=== PATIENT | male | born 1950 | race Two or more races ===

== ENCOUNTER → 2017-08-21 | Outpatient (CLI) | payer OTHER, MEDICAID ==
[~2017-08-21] MED LIST: AMOX500C2 OR; TRIA25CA OR
[2017-08-21 07:19] LABS: Basophils # (auto) 0 uL; Basophils % (auto) 0.4 % (0.0-2.0); Eosinophils # (auto) 0.1 uL; Eosinophils % (auto) 0.7 % (0.0-7.0); Hematocrit 49.3 % (41.0-53.0); Hemoglobin 16.5 g/dL (13.5-17.5); Lymphocytes # (auto) 2.6 uL; Lymphocytes % (auto) 29.3 % (10.0-50.0); Mean Corpuscular Hemoglobin 30.3 pg (28.0-32.0); Mean Corpuscular Hgb Conc. 33.4 g/dL (32.0-36.0); Mean Corpuscular Volume 90.5 fL (80.0-100.0); Mean Platelet Volume 9.2 fL (6.9-10.8); Monocytes # (auto) 0.7 uL; Neutrophils # (auto) 5.4 uL; Neutrophils % (auto) 61.6 % (37.0-80.0); Nucleated Red Blood Cells % 0.1 %; Platelet Count (auto) 200 10^3/uL (140-450); Red Cell Distribution Width 14.2 % (11.8-14.3); White Blood Cell 8.8 10^3/uL (4.4-10.8)
[2017-08-21 07:27] LABS: Urine Bilirubin Negative (Negative); Urine Blood Negative /uL (Negative); Urine Color Yellow (Yellow); Urine Glucose Normal (Normal); Urine Ketone Negative (Negative); Urine Mucus FEW (None Seen); Urine Nitrite Negative (Negative); Urine RBC 7 /hpf (0 - 3); Urine Squamous Epithelial Cell FEW /hpf (<5); Urine Urobilinogen Normal (Negative)
[2017-08-21 07:39] LABS: Albumin 3.5 g/dL (3.4-5.0); BUN/Creatinine Ratio 19.7; Bilirubin, Total 0.4 mg/dL (0.2-1.0); Calcium 8.5 mg/dL (8.5-10.1); Total Protein 7.4 g/dL (6.4-8.2); Uric Acid 3.4 mg/dL (3.5-7.2)
== END | disposition home or self-care (01) ==
LOC: LAB 06:42
PROVIDERS: ATTEND Internal Medicine
DX: N40.0 Benign prostatic hyperplasia without lower urinary tract symptoms (principal); R79.89 Other specified abnormal findings of blood chemistry; Z87.442 Personal history of urinary calculi
CPT/HCPCS: 36415; 80053; 80061; 81001; 82270; 83970; 84439; 84443; 84550; 85025; 85652

== ENCOUNTER → 2018-07-11 | Outpatient (CLI) | payer OTHER, MEDICAID ==
[2018-07-11 08:05] LABS: Basophils # (auto) 0 uL; Basophils % (auto) 0.5 % (0.0-2.0); Eosinophils # (auto) 0.1 uL; Eosinophils % (auto) 1.2 % (0.0-7.0); Hematocrit 46.4 % (41.0-53.0); Hemoglobin 15.5 g/dL (13.5-17.5); Lymphocytes # (auto) 2.6 uL; Lymphocytes % (auto) 31.9 % (10.0-50.0); Mean Corpuscular Hemoglobin 30.6 pg (28.0-32.0); Mean Corpuscular Hgb Conc. 33.5 g/dL (32.0-36.0); Mean Corpuscular Volume 91.5 fL (80.0-100.0); Monocytes # (auto) 0.7 uL; Monocytes % (auto) 8.8 % (0.0-12.0); Neutrophils # (auto) 4.7 uL; Neutrophils % (auto) 57.6 % (37.0-80.0); Nucleated Red Blood Cells % 0.1 %; Platelet Count (auto) 211 10^3/uL (140-450); Red Blood Cells 5.07 10^6/uL (4.5-5.90); Red Cell Distribution Width 14.1 % (11.8-14.3); White Blood Cell 8.2 10^3/uL (4.4-10.8)
[2018-07-11 08:34] LABS: Urine Bacteria MANY /hpf (None Seen); Urine Blood 2+ /uL (Negative); Urine Mucus FEW (None Seen); Urine WBC 737 /hpf (0 - 3); Urine WBC Clumps PRESENT /hpf (None Seen)
[2018-07-11 08:50] LABS: Albumin 3.4 g/dL (3.4-5.0); BUN/Creatinine Ratio 28.2; Bilirubin, Total 0.4 mg/dL (0.2-1.0); Calcium 8.4 mg/dL (8.5-10.1); Potassium 3.9 mmol/L (3.5-5.1)
[2018-07-11 09:57] LABS: Free T4 (Free Thyroxine) 1.04 ng/dL (0.89-1.76); Prostate Specific Antigen 2.83 ng/mL (0.0-4.0)
== END | disposition home or self-care (01) ==
LOC: LAB 07:32
PROVIDERS: ATTEND Internal Medicine
DX: Z12.11 Encounter for screening for malignant neoplasm of colon (principal); I10 Essential (primary) hypertension; N40.0 Benign prostatic hyperplasia without lower urinary tract symptoms
CPT/HCPCS: 36415; 80053; 80061; 81001; 82043; 82270; 84153; 84439; 84443; 85025; 85652

== ENCOUNTER → 2018-08-26 | Outpatient (CLI) | payer OTHER | END | disposition home or self-care (01) | LOC: LAB 10:05 | PROVIDERS: ATTEND Internal Medicine | DX: N40.1 Benign prostatic hyperplasia with lower urinary tract symptoms (principal); R31.21 Asymptomatic microscopic hematuria | CPT/HCPCS: 87086 ==

== ENCOUNTER → 2019-01-19 | Day surgery (SDC) | payer OTHER, MEDICAID ==
[2019-01-16 14:07] LABS: Basophils # (auto) 0 uL; Basophils % (auto) 0.2 % (0.0-2.0); Eosinophils # (auto) 0 uL; Eosinophils % (auto) 0.3 % (0.0-7.0); Hematocrit 48.6 % (41.0-53.0); Lymphocytes # (auto) 2.1 uL; Lymphocytes % (auto) 22.4 % (10.0-50.0); Mean Corpuscular Hemoglobin 30.5 pg (28.0-32.0); Mean Corpuscular Volume 92.2 fL (80.0-100.0); Monocytes # (auto) 0.8 uL; Monocytes % (auto) 8.8 % (0.0-12.0); Neutrophils # (auto) 6.3 uL; Neutrophils % (auto) 68.3 % (37.0-80.0); Platelet Count (auto) 202 10^3/uL (140-450); Red Blood Cells 5.27 10^6/uL (4.5-5.90); Red Cell Distribution Width 14.1 % (11.8-14.3); Urine Bacteria NONE SEEN /hpf (None Seen); Urine Blood TRACE /uL (Negative); Urine Mucus FEW (None Seen); Urine Specific Gravity 1.024 (1.001-1.035); Urine WBC 7 /hpf (0 - 3); White Blood Cell 9.3 10^3/uL (4.4-10.8)
[2019-01-16 14:19] LABS: INR 0.99 (0.9-1.15); Partial Thromboplastin Time 24.8 sec (23.78-33.04); Prothrombin Time 10.6 sec (9.27-12.13)
[2019-01-16 16:02] LABS: Albumin 3.5 g/dL (3.4-5.0); BUN/Creatinine Ratio 26.6; Bilirubin, Total 0.4 mg/dL (0.2-1.0); Calcium 8.4 mg/dL (8.5-10.1); Total Protein 7.2 g/dL (6.4-8.2)
[~2019-01-19] VITALS: Ht 167.6 cm; Wt 90.7 kg
[~2019-01-19] MED LIST changes: -AMOX500C2 OR; +CIPROFLOXACIN 400MG/200ML 200 ML IV ONE; +HYDROmorphone HCL 2 MG/ML VL IV PRN; +LIDOCAINE 2% JELLY 11ml (GLYDO) ONE; +MEPERIDINE HCL (50 MG/ML) 1 ML VIAL ONE; +METOCLOPRAMIDE HCL 5MG/ml INJ 2ml VIAL IV ONE; +METOCLOPRAMIDE HCL 5MG/ml INJ 2ml VIAL ONE; +MIDAZOLAM HCL 1MG/1ML-2 ML VIAL ONE; +ONDANSETRON HCL 4 MG/2 ML VIAL ONE; +PROMETHAZINE HCL 25 MG/ML 1ML IV ONE; +PROMETHAZINE HCL 25 MG/ML 1ML ONE; +PROPOFOL 10 MG/ML 20 ML IV ONE; +ROCURONIUM 10MG/ML 10ML VIAL IV ONE; +SODIUM CHLORIDE LOCK 10 ML ONE; -TRIA25CA OR; +ePHEDrine SULFATE 50 MG/ML AMP ONE; +fentaNYL CITRATE 100 MCG/2 ML VL ONE
[2019-01-19 12:17] VITALS: BP 151/77
== END | disposition home or self-care (01) ==
LOC: SUR 05:50
PROVIDERS: ATTEND Urology
DX: N40.0 Benign prostatic hyperplasia without lower urinary tract symptoms (principal); N32.89 Other specified disorders of bladder; N32.9 Bladder disorder, unspecified; E66.9 Obesity, unspecified; Z68.32 Body mass index [BMI] 32.0-32.9, adult; Z98.890 Other specified postprocedural states; Z79.899 Other long term (current) drug therapy
CPT/HCPCS: 36415; 52240; 52601; 80053; 81001; 85025; 85610; 85730; 88305; J0744; J2175; J2250; J2405; J2550; J2704; J2765; J3010

== ENCOUNTER → 2019-07-28 | Outpatient (CLI) | payer OTHER, MEDICAID ==
[2019-07-28 09:07] LABS: Uric Acid 3.6 mg/dL (3.5-7.2)
== END | disposition home or self-care (01) ==
LOC: LAB 08:15
PROVIDERS: ATTEND Internal Medicine
DX: Z12.11 Encounter for screening for malignant neoplasm of colon (principal); I10 Essential (primary) hypertension
CPT/HCPCS: 36415; 80061; 82270; 83970; 84439; 84443; 84550

== ENCOUNTER → 2020-08-09 | Outpatient (CLI) | payer OTHER, MEDICAID | END | disposition home or self-care (01) | LOC: LAB 09:33 | PROVIDERS: ATTEND Internal Medicine | DX: N40.0 Benign prostatic hyperplasia without lower urinary tract symptoms (principal); R53.83 Other fatigue; E87.6 Hypokalemia | CPT/HCPCS: 82270 ==

== ENCOUNTER → 2020-08-09 | Outpatient (CLI) | payer OTHER, MEDICAID ==
[2020-08-09 08:44] LABS: Basophils # (auto) 0 10 ^3/uL (0-0.2); Basophils % (auto) 0.4 % (0.0-2.0); Eosinophils # (auto) 0.1 10 ^3/uL (0-0.8); Eosinophils % (auto) 0.8 % (0.0-7.0); Hematocrit 47.3 % (41.0-53.0); Hemoglobin 15.6 g/dL (13.5-17.5); Mean Corpuscular Hemoglobin 30.4 pg (28.0-32.0); Mean Corpuscular Hgb Conc. 32.9 g/dL (32.0-36.0); Mean Corpuscular Volume 92.2 fL (80.0-100.0); Monocytes # (auto) 0.8 10 ^3/uL (0-1.3); Monocytes % (auto) 8.3 % (0.0-12.0); Neutrophils # (auto) 5.4 10 ^3/uL (1.6-8.6); Neutrophils % (auto) 58.5 % (37.0-80.0); Nucleated Red Blood Cells % 0.1 %; Platelet Count (auto) 193 10^3/uL (140-450); Red Blood Cells 5.13 10^6/uL (4.5-5.90); White Blood Cell 9.2 10^3/uL (4.4-10.8)
[2020-08-09 08:49] LABS: Urine Bacteria NONE SEEN /hpf (None Seen); Urine Blood Negative /uL (Negative); Urine Mucus FEW (None Seen); Urine Specific Gravity 1.018 (1.001-1.035); Urine WBC 1 /hpf (0 - 3)
[2020-08-09 09:06] LABS: Albumin 3.5 g/dL (3.4-5.0); Calcium 8.4 mg/dL (8.5-10.1); Potassium 3.7 mmol/L (3.5-5.1)
[2020-08-09 09:12] LABS: BUN/Creatinine Ratio 25.8; Bilirubin, Total 0.6 mg/dL (0.2-1.0); Total Protein 6.8 g/dL (6.4-8.2)
[2020-08-09 10:17] LABS: Free T4 (Free Thyroxine) 1.04 ng/dL (0.89-1.76); Prostate Specific Antigen 1.18 ng/mL (0.0-4.0)
== END | disposition home or self-care (01) ==
LOC: LAB 08:04
PROVIDERS: ATTEND Internal Medicine
DX: Z12.11 Encounter for screening for malignant neoplasm of colon (principal); N40.1 Benign prostatic hyperplasia with lower urinary tract symptoms; E83.51 Hypocalcemia; R53.83 Other fatigue
CPT/HCPCS: 36415; 80053; 80061; 81001; 83970; 84153; 84439; 84443; 85025; 85652

== ENCOUNTER → 2021-08-28 | Outpatient (CLI) | payer OTHER ==
[2021-08-28 08:29] LABS: Basophils # (auto) 0.1 10 ^3/uL (0-0.2); Basophils % (auto) 0.9 % (0.0-2.0); Eosinophils # (auto) 0.1 10 ^3/uL (0-0.8); Hematocrit 48.4 % (41.0-53.0); Hemoglobin 15.7 g/dL (13.5-17.5); Lymphocytes # (auto) 2.7 10 ^3/uL (0.4-5.4); Lymphocytes % (auto) 33.3 % (10.0-50.0); Mean Corpuscular Hemoglobin 30.1 pg (28.0-32.0); Mean Corpuscular Hgb Conc. 32.4 g/dL (32.0-36.0); Mean Corpuscular Volume 93.1 fL (80.0-100.0); Monocytes # (auto) 0.8 10 ^3/uL (0-1.3); Monocytes % (auto) 9.8 % (0.0-12.0); Neutrophils # (auto) 4.5 10 ^3/uL (1.6-8.6); Nucleated Red Blood Cells % 0.1 %; Red Cell Distribution Width 14.2 % (11.8-14.3); Urine Bacteria NONE SEEN /hpf (None Seen); Urine Blood Negative /uL (Negative); Urine Mucus FEW (None Seen); Urine Specific Gravity 1.012 (1.001-1.035); Urine WBC 19 /hpf (0 - 3); White Blood Cell 8.2 10^3/uL (4.4-10.8)
[2021-08-28 09:01] LABS: Potassium 4.1 mmol/L (3.5-5.1)
[2021-08-28 09:11] LABS: Albumin 3.4 g/dL (3.4-5.0); BUN/Creatinine Ratio 27.4; Bilirubin, Total 0.5 mg/dL (0.2-1.0); Calcium 8.9 mg/dL (8.5-10.1); Total Protein 6.8 g/dL (6.4-8.2)
== END | disposition home or self-care (01) ==
LOC: LAB 07:46
PROVIDERS: ATTEND Internal Medicine
DX: R03.0 Elevated blood-pressure reading, without diagnosis of hypertension (principal)
CPT/HCPCS: 36415; 80053; 80061; 81001; 82270; 84439; 84443; 85025; 85652

== ENCOUNTER 2021-11-10 01:16 | Inpatient (IN) | payer OTHER ==
[~2021-11-10] VITALS: Ht 167.6 cm; Wt 89.9 kg
[2021-11-10 04:46] LABS: Basophils # (auto) 0 10 ^3/uL (0-0.2); Basophils % (auto) 0.1 % (0.0-2.0); Eosinophils # (auto) 0 10 ^3/uL (0-0.8); Hematocrit 48.3 % (41.0-53.0); Hemoglobin 16.1 g/dL (13.5-17.5); Lymphocytes # (auto) 0.7 10 ^3/uL (0.4-5.4); Lymphocytes % (auto) 5.1 % (10.0-50.0); Mean Corpuscular Hemoglobin 30.2 pg (28.0-32.0); Mean Corpuscular Hgb Conc. 33.3 g/dL (32.0-36.0); Monocytes # (auto) 0.8 10 ^3/uL (0-1.3); Monocytes % (auto) 5.9 % (0.0-12.0); Neutrophils % (auto) 88.9 % (37.0-80.0); Nucleated Red Blood Cells % 0.1 %; Red Blood Cells 5.31 10^6/uL (4.5-5.90); Red Cell Distribution Width 13.6 % (11.8-14.3); White Blood Cell 13.5 10^3/uL (4.4-10.8)
[2021-11-10 04:50] LABS: Albumin 3.3 g/dL (3.4-5.0); BUN/Creatinine Ratio 28.4; Calcium 8.2 mg/dL (8.5-10.1); Potassium 4.1 mmol/L (3.5-5.1)
[2021-11-10 04:53] LABS: Bilirubin, Total 0.6 mg/dL (0.2-1.0); Total Protein 6.9 g/dL (6.4-8.2)
[2021-11-10 08:46] LABS: Cholesterol 180 mg/dL (< 200)
[2021-11-10 08:48] LABS: HDL Cholesterol 47 mg/dL (40-59); LDL Cholesterol 118 mg/dL (< 100); Triglycerides 85 mg/dL (< 150)
[2021-11-10 09:28] LABS: Urine Bacteria NONE SEEN /hpf (None Seen); Urine Blood 3+ /uL (Negative); Urine Mucus FEW (None Seen); Urine Specific Gravity 1.021 (1.001-1.035); Urine WBC 233 /hpf (0 - 3)
[2021-11-10] MEDS ORDERED: ONDANSETRON HCL 4 MG/2 ML VIAL IV PRN (09:30)
[2021-11-10] MEDS ORDERED: MORPHINE SULFATE INJECTION 2 MG/ML SYRG IV PRN ×2 (09:30)
[2021-11-10] MEDS ORDERED: HYDROcodone-ACET 5/325MG TAB PO PRN (09:30)
[2021-11-10] MEDS ORDERED: ATORVASTATIN 20 MG TAB PO ONE (09:30)
[2021-11-10] MEDS ORDERED: ASPirin-EC 325mg tab PO ONE (09:30)
[2021-11-10] MEDS ORDERED: ACETAMINOPHEN 325 MG TAB PO PRN (09:30)
[2021-11-10] MEDS ORDERED: DOCUSATE SOD 100 MG CAP PO PRN (09:30)
[2021-11-10] MEDS ORDERED: NITROGLYCERIN 0.4 MG SL TAB SL PRN (09:30)
[2021-11-10] MEDS ORDERED: amLODIPine BESYLATE 5 MG TAB PO ONE (09:30)
[2021-11-10 09:38] LABS: INR 1.07 (0.9-1.15); Partial Thromboplastin Time 22.5 sec (23.6-33.0)
[2021-11-10 10:27] LABS: Free T4 (Free Thyroxine) 1.08 ng/dL (0.89-1.76)
[2021-11-10 10:28] LABS: Folate (Folic Acid) 14.18 ng/mL (5.38-24)
[2021-11-10 13:00] VITALS: BP 125/63
[2021-11-10] MEDS ORDERED: CLOPIDOGREL BISULFATE 75 MG TAB PO ONE (15:15)
[2021-11-10] MEDS ORDERED: CYANOCOBALAMIN (B-12) 1000 MCG/1 ML VIAL SUBCUT ONE (15:15)
[2021-11-10] MEDS: SODIUM CHLOR 0.9% PF (SALINE LOCK) 10ML VIAL/SYR IV SCH (15:49)
[2021-11-10 17:00] VITALS: BP 129/72
[2021-11-10] MEDS ORDERED: IOHEXOL 350 MG/ML 100ML IJ ONE (18:15)
[2021-11-10 21:59] VITALS: BP 132/70
[2021-11-11 05:17] VITALS: BP 111/70
[2021-11-11] MEDS: SODIUM CHLOR 0.9% PF (SALINE LOCK) 10ML VIAL/SYR IV SCH ×4 (05:17→22:19)
[2021-11-11 08:24] VITALS: BP 131/61
[2021-11-11] MEDS: ASPirin 81 mg TAB PO SCH (10:17)
[2021-11-11] MEDS: CLOPIDOGREL BISULFATE 75 MG TAB PO SCH (10:17)
[2021-11-11 12:48] VITALS: BP 127/67
[2021-11-11] MEDS ORDERED: ERGOCALCIFEROL 50,000 UNIT(1.25MG) CAP PO SCH (15:45)
[2021-11-11 16:48] VITALS: BP 133/71
[2021-11-11 22:00] VITALS: BP 125/70
[2021-11-11] MEDS: ATORVASTATIN 20 MG TAB PO SCH (22:18)
[2021-11-12] VITALS (7 sets, daily range): BP systolic 120–155; BP diastolic 60–80
[2021-11-12] MEDS: SODIUM CHLOR 0.9% PF (SALINE LOCK) 10ML VIAL/SYR IV SCH ×3 (05:43→22:10)
[2021-11-12] MEDS ORDERED: amLODIPine BESYLATE 5 MG TAB PO SCH (10:00)
[2021-11-12] MEDS: CLOPIDOGREL BISULFATE 75 MG TAB PO SCH (10:16)
[2021-11-12] MEDS: ASPirin 81 mg TAB PO SCH (10:16)
[2021-11-12] MEDS: LISINOPRIL 5 MG TAB PO SCH (10:16)
[2021-11-12] MEDS ORDERED: cefTRIAXone 1GM/50ML D5W 50 ML IV ONE (13:15)
[2021-11-12 14:51] LABS: Basophils # (auto) 0 10 ^3/uL (0-0.2); Basophils % (auto) 0.5 % (0.0-2.0); Eosinophils # (auto) 0.1 10 ^3/uL (0-0.8); Eosinophils % (auto) 0.7 % (0.0-7.0); Hematocrit 47.1 % (41.0-53.0); Hemoglobin 16.1 g/dL (13.5-17.5); Lymphocytes % (auto) 21.2 % (10.0-50.0); Mean Corpuscular Hemoglobin 30.6 pg (28.0-32.0); Mean Corpuscular Hgb Conc. 34.2 g/dL (32.0-36.0); Mean Corpuscular Volume 89.3 fL (80.0-100.0); Monocytes # (auto) 1.1 10 ^3/uL (0-1.3); Monocytes % (auto) 11.9 % (0.0-12.0); Neutrophils # (auto) 6.2 10 ^3/uL (1.6-8.6); Neutrophils % (auto) 65.7 % (37.0-80.0); Red Blood Cells 5.27 10^6/uL (4.5-5.90); Red Cell Distribution Width 13.7 % (11.8-14.3); White Blood Cell 9.4 10^3/uL (4.4-10.8)
[2021-11-12] MEDS: ATORVASTATIN 20 MG TAB PO SCH (21:38)
[2021-11-13 05:00] VITALS: BP 121/79
[2021-11-13] MEDS: SODIUM CHLOR 0.9% PF (SALINE LOCK) 10ML VIAL/SYR IV SCH ×3 (05:29→22:36)
[2021-11-13 08:00] VITALS: BP 121/73
[2021-11-13 08:10] LABS: Potassium 4.1 mmol/L (3.5-5.1)
[2021-11-13 08:19] LABS: BUN/Creatinine Ratio 34.6; Calcium 8.3 mg/dL (8.5-10.1)
[2021-11-13 09:00] VITALS: BP 121/73
[2021-11-13] MEDS ORDERED: LIDOCAINE VISCOUS 2% 15ML UD PO ONE (10:00)
[2021-11-13] MEDS ORDERED: MIDAZOLAM HCL 2MG/2ML 2ml VIAL (1mg/ml) IV ONE (10:00)
[2021-11-13] MEDS ORDERED: fentaNYL CITRATE 100 MCG/2 ML VL IV ONE (10:00)
[2021-11-13] MEDS ORDERED: diphenhdrAMINE HCL 50 MG/1 ML VL IV ONE (10:00)
[2021-11-13] MEDS ORDERED: FAMOTIDINE (10MG/ML) 2ML VL IV ONE (10:00)
[2021-11-13] MEDS: cefTRIAXone 1GM/50ML D5W 50 ML IV SCH (13:00)
[2021-11-13] MEDS: ASPirin 81 mg TAB PO SCH (13:00)
[2021-11-13] MEDS: CLOPIDOGREL BISULFATE 75 MG TAB PO SCH (13:00)
[2021-11-13] MEDS: LISINOPRIL 5 MG TAB PO SCH (13:01)
[2021-11-13 17:00] VITALS: BP 116/66
[2021-11-13 22:00] VITALS: BP 131/76
[2021-11-13] MEDS: ATORVASTATIN 20 MG TAB PO SCH (22:29)
[2021-11-14 05:39] VITALS: BP 127/73
[2021-11-14] MEDS: SODIUM CHLOR 0.9% PF (SALINE LOCK) 10ML VIAL/SYR IV SCH ×2 (06:35→14:05)
[2021-11-14 08:30] VITALS: BP 106/70
[2021-11-14] MEDS: ASPirin 81 mg TAB PO SCH (09:32)
[2021-11-14] MEDS: LISINOPRIL 5 MG TAB PO SCH (09:32)
[2021-11-14] MEDS: cefTRIAXone 1GM/50ML D5W 50 ML IV SCH (09:32)
[2021-11-14] MEDS: CLOPIDOGREL BISULFATE 75 MG TAB PO SCH (09:33)
[2021-11-14 13:00] VITALS: BP 118/61
[2021-11-14] MEDS ORDERED: ATOR80TA PO (14:23)
[2021-11-14] MEDS ORDERED: ASPI-378 PO (14:23)
[2021-11-14] MEDS ORDERED: CLOP75TA28 PO (14:23)
[2021-11-14] MEDS ORDERED: CHOL20007 PO (14:25)
[2021-11-14] MEDS ORDERED: LISI2.5T47 PO (14:25)
[2021-11-14] MEDS ORDERED: PANT40TA2 PO (14:25)
[2021-11-14 17:19] VITALS: BP 123/61
== END 2021-11-14 21:40 | disposition home health service (06) | DRG 65 ==
LOC: ER 01:16 → TELE 09:17 → WEST WING 11:53 → TELE-WESTW 11:55
PROVIDERS: ADMIT Internal Medicine; ATTEND Internal Medicine
PROC: 5A09357 Assistance with Respiratory Ventilation, Less than 24 Consecutive Hours, Continuous Positive Airway Pressure (ICD-10-PCS; 2021-11-12)
PROC: B246ZZ4 Ultrasonography of Right and Left Heart, Transesophageal (ICD-10-PCS; principal; 2021-11-13)
DX: I63.9 Cerebral infarction, unspecified (principal); I50.32 Chronic diastolic (congestive) heart failure; N39.0 Urinary tract infection, site not specified; G81.94 Hemiplegia, unspecified affecting left nondominant side; R65.10 Systemic inflammatory response syndrome (SIRS) of non-infectious origin without acute organ dysfunction; I11.0 Hypertensive heart disease with heart failure; T50.B95A Adverse effect of other viral vaccines, initial encounter; E55.9 Vitamin D deficiency, unspecified; E04.1 Nontoxic single thyroid nodule; Z20.822 Contact with and (suspected) exposure to COVID-19; E66.9 Obesity, unspecified; E78.5 Hyperlipidemia, unspecified; F17.200 Nicotine dependence, unspecified, uncomplicated; F32.A Depression, unspecified; N40.0 Benign prostatic hyperplasia without lower urinary tract symptoms; Z79.02 Long term (current) use of antithrombotics/antiplatelets; Z79.82 Long term (current) use of aspirin; Z79.899 Other long term (current) drug therapy; Z89.021 Acquired absence of right finger(s)
CPT/HCPCS: 36415; 70450; 70496; 70498; 70547; 70551; 71045; 76536; 80048; 80053; 80061; 81001; 82306; 82607; 82746; 83036; 83090; 83605; 84439; 84443; 84484; 85025; 85610; 85730; 87086; 87426; 93005; 93306; 93312; 96372; 96374; 97116; 97163; 97530; 99152; G0378; J0696; J2250; J3490

== ENCOUNTER → 2022-05-22 | Outpatient (CLI) | payer OTHER ==
[~2022-05-22] MED LIST changes: -CIPROFLOXACIN 400MG/200ML 200 ML IV ONE; -HYDROmorphone HCL 2 MG/ML VL IV PRN; -LIDOCAINE 2% JELLY 11ml (GLYDO) ONE; +LISI2.5T47 PO; -MEPERIDINE HCL (50 MG/ML) 1 ML VIAL ONE; -METOCLOPRAMIDE HCL 5MG/ml INJ 2ml VIAL IV ONE; -METOCLOPRAMIDE HCL 5MG/ml INJ 2ml VIAL ONE; -MIDAZOLAM HCL 1MG/1ML-2 ML VIAL ONE; -ONDANSETRON HCL 4 MG/2 ML VIAL ONE; +PANT40TA2 PO; -PROMETHAZINE HCL 25 MG/ML 1ML IV ONE; -PROMETHAZINE HCL 25 MG/ML 1ML ONE; -PROPOFOL 10 MG/ML 20 ML IV ONE; -ROCURONIUM 10MG/ML 10ML VIAL IV ONE; -SODIUM CHLORIDE LOCK 10 ML ONE; -ePHEDrine SULFATE 50 MG/ML AMP ONE; -fentaNYL CITRATE 100 MCG/2 ML VL ONE
[2022-05-22 07:35] LABS: Basophils # (auto) 0 10 ^3/uL (0-0.2); Basophils % (auto) 0.3 % (0.0-2.0); Eosinophils # (auto) 0.1 10 ^3/uL (0-0.8); Hematocrit 43.8 % (41.0-53.0); Hemoglobin 14.6 g/dL (13.5-17.5); Lymphocytes # (auto) 2.3 10 ^3/uL (0.4-5.4); Lymphocytes % (auto) 31.9 % (10.0-50.0); Mean Corpuscular Hemoglobin 30.9 pg (28.0-32.0); Mean Corpuscular Hgb Conc. 33.3 g/dL (32.0-36.0); Mean Corpuscular Volume 92.6 fL (80.0-100.0); Monocytes # (auto) 0.6 10 ^3/uL (0-1.3); Monocytes % (auto) 8.5 % (0.0-12.0); Neutrophils # (auto) 4.3 10 ^3/uL (1.6-8.6); Neutrophils % (auto) 58.3 % (37.0-80.0); Nucleated Red Blood Cells % 0.1 %; Red Blood Cells 4.73 10^6/uL (4.5-5.90); Red Cell Distribution Width 14.2 % (11.8-14.3); White Blood Cell 7.4 10^3/uL (4.4-10.8)
[2022-05-22 07:42] LABS: Urine Bacteria NONE SEEN /hpf (None Seen); Urine Blood Negative /uL (Negative); Urine Specific Gravity 1.017 (1.001-1.035); Urine WBC 33 /hpf (0 - 3)
[2022-05-22 07:56] LABS: Albumin 3.2 g/dL (3.4-5.0); Calcium 8.4 mg/dL (8.5-10.1); Potassium 3.9 mmol/L (3.5-5.1)
[2022-05-22 08:02] LABS: BUN/Creatinine Ratio 33.3; Bilirubin, Total 0.6 mg/dL (0.2-1.0); Total Protein 6.6 g/dL (6.4-8.2)
[2022-05-22 08:53] LABS: Free T4 (Free Thyroxine) 1.08 ng/dL (0.89-1.76)
[2022-05-22 08:54] LABS: Prostate Specific Antigen 1.06 ng/mL (0.0-4.0)
== END | disposition home or self-care (01) ==
LOC: LAB 06:45
PROVIDERS: ATTEND Internal Medicine
DX: N40.0 Benign prostatic hyperplasia without lower urinary tract symptoms (principal); E78.5 Hyperlipidemia, unspecified; I10 Essential (primary) hypertension
CPT/HCPCS: 36415; 80053; 80061; 81001; 82607; 84153; 84439; 84443; 85025; 85652

== ENCOUNTER 2022-10-02 13:47 | Emergency (ER) | payer OTHER ==
[~2022-10-02] VITALS: Ht 167.6 cm; Wt 82.0 kg
[2022-10-02 15:05] LABS: Basophils # (auto) 0 10 ^3/uL (0-0.2); Basophils % (auto) 0.4 % (0.0-2.0); Eosinophils # (auto) 0.1 10 ^3/uL (0-0.8); Eosinophils % (auto) 0.5 % (0.0-7.0); Hematocrit 46.3 % (41.0-53.0); Hemoglobin 15.7 g/dL (13.5-17.5); Lymphocytes # (auto) 2.7 10 ^3/uL (0.4-5.4); Lymphocytes % (auto) 26.4 % (10.0-50.0); Mean Corpuscular Hgb Conc. 33.8 g/dL (32.0-36.0); Mean Corpuscular Volume 91.5 fL (80.0-100.0); Monocytes # (auto) 0.8 10 ^3/uL (0-1.3); Monocytes % (auto) 8.3 % (0.0-12.0); Neutrophils # (auto) 6.5 10 ^3/uL (1.6-8.6); Neutrophils % (auto) 64.4 % (37.0-80.0); Nucleated Red Blood Cells % 0.1 %; Red Blood Cells 5.06 10^6/uL (4.5-5.90); White Blood Cell 10.1 10^3/uL (4.4-10.8)
[2022-10-02 15:14] VITALS: BP 125/64
[2022-10-02 15:18] LABS: Albumin 3.4 g/dL (3.4-5.0); Calcium 8.6 mg/dL (8.5-10.1); Potassium 4.2 mmol/L (3.5-5.1)
[2022-10-02 15:22] LABS: BUN/Creatinine Ratio 27.4; Bilirubin, Total 0.5 mg/dL (0.2-1.0); Total Protein 6.8 g/dL (6.4-8.2)
== END 2022-10-02 18:43 | disposition home or self-care (01) ==
LOC: ER 13:47
DX: R20.0 Anesthesia of skin (principal); I10 Essential (primary) hypertension; E78.5 Hyperlipidemia, unspecified; Z86.73 Personal history of transient ischemic attack (TIA), and cerebral infarction without residual deficits; Z79.899 Other long term (current) drug therapy
CPT/HCPCS: 36415; 70450; 80053; 85025

== ENCOUNTER 2023-03-07 21:39 | Emergency (ER) | payer OTHER, MEDICARE ==
[~2023-03-07] VITALS: Ht 167.6 cm; Wt 82.9 kg
[2023-03-07 22:42] LABS: Basophils # (auto) 0 10 ^3/uL (0-0.2); Basophils % (auto) 0.5 % (0.0-2.0); Eosinophils # (auto) 0.1 10 ^3/uL (0-0.8); Eosinophils % (auto) 0.6 % (0.0-7.0); Hematocrit 45.9 % (41.0-53.0); Hemoglobin 15.1 g/dL (13.5-17.5); Lymphocytes # (auto) 2.2 10 ^3/uL (0.4-5.4); Lymphocytes % (auto) 22.2 % (10.0-50.0); Mean Corpuscular Hemoglobin 30.5 pg (28.0-32.0); Mean Corpuscular Hgb Conc. 32.9 g/dL (32.0-36.0); Mean Corpuscular Volume 92.7 fL (80.0-100.0); Monocytes # (auto) 0.7 10 ^3/uL (0-1.3); Monocytes % (auto) 7.4 % (0.0-12.0); Neutrophils # (auto) 6.7 10 ^3/uL (1.6-8.6); Neutrophils % (auto) 69.3 % (37.0-80.0); Red Blood Cells 4.95 10^6/uL (4.5-5.90); Red Cell Distribution Width 14.1 % (11.8-14.3); White Blood Cell 9.7 10^3/uL (4.4-10.8)
[2023-03-07 22:58] LABS: INR 1.06 (0.9-1.15); Partial Thromboplastin Time 26.2 sec (24.6-33.4)
[2023-03-07 23:01] LABS: Albumin 3.2 g/dL (3.4-5.0); Calcium 8.8 mg/dL (8.5-10.1)
[2023-03-07 23:04] LABS: Bilirubin, Total 0.5 mg/dL (0.2-1.0); Total Protein 6.4 g/dL (6.4-8.2)
[2023-03-08 03:33] VITALS: BP 141/66
== END 2023-03-08 03:36 | disposition home or self-care (01) ==
LOC: ER 21:39
DX: R73.9 Hyperglycemia, unspecified (principal); R20.0 Anesthesia of skin; E88.09 Other disorders of plasma-protein metabolism, not elsewhere classified; F10.90 Alcohol use, unspecified, uncomplicated; E78.5 Hyperlipidemia, unspecified; I10 Essential (primary) hypertension; Z86.73 Personal history of transient ischemic attack (TIA), and cerebral infarction without residual deficits; Z98.890 Other specified postprocedural states
CPT/HCPCS: 36415; 70450; 80053; 80320; 82010; 82962; 83690; 83880; 84484; 85025; 85610; 85730

== ENCOUNTER → 2023-04-15 | Outpatient (CLI) | payer OTHER, MEDICAID ==
[2023-04-15 08:34] LABS: Basophils # (auto) 0 10 ^3/uL (0-0.2); Basophils % (auto) 0.3 % (0.0-2.0); Eosinophils # (auto) 0.1 10 ^3/uL (0-0.8); Eosinophils % (auto) 0.7 % (0.0-7.0); Hematocrit 43.7 % (41.0-53.0); Hemoglobin 14.6 g/dL (13.5-17.5); Lymphocytes # (auto) 2.5 10 ^3/uL (0.4-5.4); Lymphocytes % (auto) 29.3 % (10.0-50.0); Mean Corpuscular Hemoglobin 30.9 pg (28.0-32.0); Mean Corpuscular Hgb Conc. 33.5 g/dL (32.0-36.0); Mean Corpuscular Volume 92.1 fL (80.0-100.0); Monocytes # (auto) 0.7 10 ^3/uL (0-1.3); Monocytes % (auto) 8.3 % (0.0-12.0); Neutrophils # (auto) 5.2 10 ^3/uL (1.6-8.6); Neutrophils % (auto) 61.4 % (37.0-80.0); Nucleated Red Blood Cells % 0.1 %; Red Blood Cells 4.74 10^6/uL (4.5-5.90); Red Cell Distribution Width 13.8 % (11.8-14.3); White Blood Cell 8.5 10^3/uL (4.4-10.8)
[2023-04-15 08:57] LABS: INR 1.03 (0.9-1.15); Partial Thromboplastin Time 26.1 sec (24.6-33.4)
== END | disposition home or self-care (01) ==
LOC: LAB 08:18
PROVIDERS: ATTEND Internal Medicine
DX: E04.1 Nontoxic single thyroid nodule (principal)
CPT/HCPCS: 36415; 85025; 85610; 85730

== ENCOUNTER → 2023-04-17 | Outpatient (CLI) | payer OTHER, MEDICAID | END | disposition home or self-care (01) | LOC: US 10:43 | PROVIDERS: ATTEND Internal Medicine | DX: E04.1 Nontoxic single thyroid nodule (principal); I10 Essential (primary) hypertension; E78.5 Hyperlipidemia, unspecified; Z86.73 Personal history of transient ischemic attack (TIA), and cerebral infarction without residual deficits; Z98.890 Other specified postprocedural states | CPT/HCPCS: 76536; 76942 ==

== ENCOUNTER → 2023-07-04 | Outpatient (CLI) | payer OTHER, MEDICAID ==
[2023-07-04 08:51] LABS: Urine Bacteria NONE SEEN /hpf (None Seen); Urine Blood Negative /uL (Negative); Urine Mucus FEW (None Seen); Urine Specific Gravity 1.014 (1.001-1.035); Urine WBC 31 /hpf (0 - 3)
[2023-07-04 09:04] LABS: Basophils # (auto) 0 10 ^3/uL (0-0.2); Basophils % (auto) 0.3 % (0.0-2.0); Eosinophils # (auto) 0.1 10 ^3/uL (0-0.8); Hemoglobin 14.7 g/dL (13.5-17.5); Mean Corpuscular Hemoglobin 30.8 pg (28.0-32.0); Mean Corpuscular Hgb Conc. 33.4 g/dL (32.0-36.0); Mean Corpuscular Volume 92.2 fL (80.0-100.0); Monocytes # (auto) 0.7 10 ^3/uL (0-1.3); Monocytes % (auto) 9.1 % (0.0-12.0); Neutrophils # (auto) 4.6 10 ^3/uL (1.6-8.6); Neutrophils % (auto) 62.6 % (37.0-80.0); Nucleated Red Blood Cells % 0.2 %; Red Blood Cells 4.77 10^6/uL (4.5-5.90); White Blood Cell 7.4 10^3/uL (4.4-10.8)
[2023-07-04 09:12] LABS: Potassium 3.8 mmol/L (3.5-5.1)
[2023-07-04 09:21] LABS: Free T4 (Free Thyroxine) 0.85 ng/dL (0.89-1.76); Prostate Specific Antigen 1.26 ng/mL (0.0-4.0)
[2023-07-04 09:22] LABS: Albumin 3.2 g/dL (3.4-5.0); BUN/Creatinine Ratio 28.1 (10.0-20.0); Bilirubin, Total 0.5 mg/dL (0.2-1.0); Calcium 8.2 mg/dL (8.5-10.1); Total Protein 6.3 g/dL (6.4-8.2)
== END | disposition home or self-care (01) ==
LOC: LAB 08:17
PROVIDERS: ATTEND Internal Medicine
DX: I10 Essential (primary) hypertension (principal); E78.5 Hyperlipidemia, unspecified
CPT/HCPCS: 36415; 80053; 80061; 81001; 84153; 84439; 84443; 85025; 85652